=== PATIENT | female | born 1955 | race Caucasian/White ===

== ENCOUNTER 2020-07-10 14:04 | Outpatient (CLI) | payer MEDICARE ==
--- NOTE | 2020-07-10 15:31 | ULT ---
Thyroid sonogram HISTORY: Thyroid nodules. FINDINGS: The right thyroid lobe has a very heterogeneous echotexture and measures up to 5.1 cm length. There a re innumerable heterogeneous, lobular predominantly isoechoic nodules. None of the nodules demonstrate spiculated margins, worrisome calcifications, or other signs of aggressiveness. Isthmus heterogeneous and 0.5 cm. Left thyroid lobe measures up to 4.4 cm with a very heterogeneous echotexture. A 1.4 cystic lesion is present near the inferior pole. Homogeneous isoechoic well-circumscribed nodules measure up to 0.7 cm at the superior pole. No aggressive appearing lesion is evident. IMPRESSION : Multinodular goiter. No focal, dominant aggressive lesion is evident
== END 2020-07-10 14:05 | disposition home or self-care (01) ==
LOC: SCSULT 14:04
DX: E04.2 Nontoxic multinodular goiter (principal)
CPT/HCPCS: 76536

== ENCOUNTER 2022-02-26 16:49 | Observation (INO) | payer MEDICARE, OTHER ==
[2022-02-26 19:42] VITALS: BMI 36.6
[2022-02-26] MEDS ORDERED: Dextrose 50% Abboject 50 ML SYRINGE SLOW IVP PRN (21:28)
[2022-02-26] MEDS ORDERED: Dextrose 5% in Water 1,000 ML IV PRN (21:28)
[2022-02-26] MEDS ORDERED: HumaLOG 300 UNITS/3 ML VIAL SC PRN ×2 (21:28)
[2022-02-26] MEDS ORDERED: Citalopram 20 MG TAB PO SCH (21:45)
[2022-02-27 05:21] LABS: Hemoglobin A1c 6.8 % (4.0-6.0)
[2022-02-27 05:28] LABS: Cardiac Risk 4.3 (Less than 4.5)
[2022-02-27] MEDS ORDERED: diphenhydrAMINE 25 MG CAP PO SCH (07:30)
[2022-02-27] MEDS ORDERED: Citalopram 20 MG TAB PO SCH ×2 (09:00)
[2022-02-27] MEDS ORDERED: Aspirin 81 mg Enteric Coated Tablet PO SCH (09:00)
[2022-02-27] MEDS ORDERED: Enoxaparin Sodium 40 MG/0.4 ML SYRINGE SC SCH (09:00)
[2022-02-27 11:38] VITALS: BP 145/70; TEMP 98.8
[2022-02-27] MEDS ORDERED: Magnevist 469MG/ML 20 ML VIAL ONE (12:00)
[2022-02-27] MEDS ORDERED: Atorvastatin Calcium 40 MG TAB PO SCH (21:00)
== END 2022-02-27 12:31 | disposition home or self-care (01) ==
LOC: NEURO 18:21
PROVIDERS: ADMIT Emergency Medicine; ATTEND Emergency Medicine
DX: R20.2 Paresthesia of skin (principal); E11.9 Type 2 diabetes mellitus without complications; E78.5 Hyperlipidemia, unspecified; Z20.822 Contact with and (suspected) exposure to COVID-19; Z79.899 Other long term (current) drug therapy; Z88.2 Allergy status to sulfonamides
CPT/HCPCS: 70553; 80061; 82962 ×2; 83036; 84443; 96372; 97139 ×2; G0378 ×2; 36415; 36416; J1650; J1815

== ENCOUNTER 2022-05-06 14:36 | Outpatient (CLI) | payer OTHER | END 2022-05-06 14:37 | disposition home or self-care (01) | LOC: BICMAMMO 14:36 | PROVIDERS: ATTEND Family Medicine | DX: N63.10 Unspecified lump in the right breast, unspecified quadrant (principal) | CPT/HCPCS: 76642; 77065; G0279 ==